=== PATIENT | female | born 2000 | race Caucasian/White ===

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

== ENCOUNTER 2018-03-20 19:26 | Observation (INO) ==
[2018-03-20] MEDS ORDERED: Sod Chloride 0.9% Inj 1,000 ML IV.SIG ONE ×2 (20:10)
[2018-03-20 20:28] LABS: Baso # (Auto) 0.2 th/mm3 (0.0-0.2); Baso % (Auto) 1.5 % (0.0-2.0); Eos % (Auto) 0.1 % (0.0-4.0); Hematocrit 38.6 % (35.0-46.0); Lymph # (Auto) 1.3 th/mm3 (1.0-4.8); Lymph % (Auto) 9.2 % (9.0-44.0); Mean Corpuscular HGB Conc 33.7 % (32.0-36.0); Mean Corpuscular Hemoglobin 31.6 pg (27.0-34.0); Mean Platelet Volume 8.8 fL (7.0-11.0); Mono # (Auto) 1.2 th/mm3 (0.0-0.9); Mono % (Auto) 8.8 % (0.0-8.0); Neut # (Auto) 11.1 th/mm3 (1.8-7.7); Neut % (Auto) 80.4 % (16.0-70.0); Platelet Count 373 th/mm3 (150-450); Red Cell Distribution Width 13.2 % (11.6-17.2); White Blood Count 13.8 th/mm3 (4.0-11.0)
[2018-03-20 20:38] LABS: Chloride 100 meq/L (98-107); Sodium 137 meq/L (136-145)
[2018-03-20 20:42] LABS: Calcium 8.8 mg/dL (8.5-10.1)
[2018-03-20 20:43] LABS: Albumin 3.3 g/dL (3.4-5.0); Anion Gap 12 meq/L (5-15); Blood Urea Nitrogen 12 mg/dL (7-18); Carbon Dioxide 24.8 meq/L (21.0-32.0); Glucose,Random 92 mg/dL (74-106)
[2018-03-20 20:46] LABS: Alanine Aminotransferase 12 U/L (9-42); Aspartate Aminotransferase 6 U/L (16-38); Glomerular Filtration Rate 84 mL/min (>89)
[2018-03-20 20:49] LABS: Alkaline Phosphatase 91 U/L (45-117)
--- NOTE | 2018-03-20 20:53 | ED ---
HPI General Chief Complaint: Abdominal Pain Stated Complaint: Vomiting/chills x 7 days Source: patient and family Mode of arrival: ambulatory Limitations: no limitations History of Present Illness HPI narrative: Is a 18-year-old woman presents emerged from complaining of fevers chills, nausea vomiting, back pain, ongoing for the past 5 days or so. She complains of diffuse severe myalgias and pain everywhere. She is tearful and crying. Pain started several days ago. The worsening over the past several days. Multiples of vomiting today. No urinary symptoms. She on her menstrual cycle now. Denies any IV drug use. No other complaints. Related Data Home Medications Medication Instructions Recorded Confirmed ibuprofen 400 mg PO Q4-6H PRN 03/20/18 03/20/18 Allergies Allergy/AdvReac Type Severity Reaction Status Date / Time No Known Allergies Allergy Uncoded 12/28/11 20:32 Review of Systems ROS Unobtainable All other systems reviewed negative except as stated in HPI [facility] Medical History Medical History History of acute renal failure (Acute) History of anxiety (Acute) Surgical History Surgical History No history of previous surgery (Acute) Social History Social History Substance History: Active Abuse Second Hand Smoke Exposure: No Smoking Status: Current every day smoker Tobacco Type: Cigarettes How Often Do You Have a Drink Containing Alcohol: Never Substance Abuse Detail Marijuana: Substance Use Status: Active Immunization History Tetanus Immunization: <5 Years Hx Influenza Vaccine This Season: No Exam Narrative Exam Narrative: GENERAL: 18-year-old woman, nontoxic, tearful crying and somewhat hysterical. SKIN: Focused skin assessment warm/dry. HEAD: Atraumatic. Normocephalic. EYES: Pupils equal and round. No scleral icterus. No injection or drainage. ENT: No nasal bleeding or discharge. Mucous membranes pink and moist. NECK: Trachea midline. No JVD. CARDIOVASCULAR: Regular rate and rhythm. No murmur appreciated. RESPIRATORY: No accessory muscle use. Clear to auscultation. Breath sounds equal bilaterally. GASTROINTESTINAL: Normal contour and appearance. Abdomen soft. Minimal tenderness. Positive CVA tenderness bilaterally. MUSCULOSKELETAL: No obvious deformities. No clubbing. No cyanosis. No edema. NEUROLOGICAL: Awake and alert. No obvious cranial nerve deficits. Motor grossly within normal limits. Normal speech. PSYCHIATRIC: Appropriate mood and affect; insight and judgment normal. Course Initial Documented Vital Signs Temperature 100.2 F H 03/20/18 19:35 Pulse Rate 107 H 03/20/18 19:35 Respiratory Rate 20 03/20/18 19:35 Blood Pressure 130/61 03/20/18 19:35 Pulse Oximetry 100 03/20/18 19:35 Last Documented Vital Signs Temperature 100.3 F H 03/20/18 20:03 Pulse Rate 106 H 03/20/18 20:03 Respiratory Rate 18 03/20/18 22:53 Blood Pressure 83/46 L 03/20/18 22:28 Pulse Oximetry 100 03/20/18 20:21 Medical Decision Making MDM Narrative Medical decision making narrative: A 18-year-old woman presents emerged from a back pain myalgias fevers vomiting suggestive of pyelonephritis. Denies IV drug use. She is very terrible dentition. If she is using IV drugs she would be at risk for osteomyelitis. Will check labs, urine, lactic, IV fluids, IV Tylenol, reassess. Lab Data Result diagrams: 03/20/18 20:10 03/20/18 20:10 Lab Results 03/20/18 03/20/18 03/20/18 Range/Units 20:10 20:10 20:10 CBC w Diff Auto diff final WBC 13.8 H (4.0-11.0) th/mm3 RBC 4.10 (4.00-5.30) mil/mm3 Hgb 13.0 (11.6-15.3) gm/dL Hct 38.6 (35.0-46.0) % MCV 94.0 (80.0-100.0) fL MCH 31.6 (27.0-34.0) pg MCHC 33.7 (32.0-36.0) % RDW 13.2 (11.6-17.2) % Plt Count 373 (150-450) th/mm3 MPV 8.8 (7.0-11.0) fL Neut % (Auto) 80.4 H (16.0-70.0) % Lymph % (Auto) 9.2 (9.0-44.0) % [place] % (Auto) 8.8 H (0.0-8.0) % Eos % (Auto) 0.1 (0.0-4.0) % Baso % (Auto) 1.5 (0.0-2.0) % Neut # (Auto) 11.1 H (1.8-7.7) th/mm3 Lymph # (Auto) 1.3 (1.0-4.8) th/mm3 [place] # (Auto) 1.2 H (0.0-0.9) th/mm3 Eos # (Auto) 0.0 (0.0-0.4) th/mm3 Baso # (Auto) 0.2 (0.0-0.2) th/mm3 WBC Differential . Differential Comment . ESR (0-20) mm/hr Sodium 137 (136-145) meq/L Potassium 3.0 L (3.5-5.1) meq/L Chloride 100 (98-107) meq/L Carbon Dioxide 24.8 (21.0-32.0) meq/L Anion Gap 12 (5-15) meq/L BUN 12 (7-18) mg/dL Creatinine 0.86 (0.50-1.00) mg/dL Estimated GFR 84 L (>89) mL/min Random Glucose 92 (74-106) mg/dL Lactic Acid 1.3 (0.4-2.0) mmol/L Calcium 8.8 (8.5-10.1) mg/dL Total Bilirubin 0.6 (0.2-1.0) mg/dL AST 6 L (16-38) U/L ALT 12 (9-42) U/L Alkaline Phosphatase 91 (45-117) U/L C-Reactive Protein (0.00-0.30) mg/dL Total Protein 8.0 (6.4-8.2) g/dL Albumin 3.3 L (3.4-5.0) g/dL Urine Color (Yellw/Straw) Urine Clarity (Clear) Urine pH (5.0-8.5) Ur Specific [place] (1.002-1.035) Urine Protein (Neg-Trace) mg/dL Urine Glucose (UA) (Negative) mg/dL Urine Ketones (Negative) mg/dL Urine Occult Blood (Negative) Urine Nitrate (Negative) Urine Bilirubin (Negative) Urine Urobilinogen (Less than 2) mg/dL Ur Leukocyte Esterase (Negative) Urine WBC (0-5) /hpf Ur Squamous Epith Cells (0-5) /hpf Urine Bacteria (None) /hpf Micro UA Comment Urine Culture Comments Urine Opiates Screen (Neg) Ur Barbiturates Screen (Neg) Ur Amphetamines Screen (Neg) U Benzodiazepines Scrn (Neg) Urine Cocaine Screen (Neg) U Cannabinoids Screen (Neg) 03/20/18 03/20/18 03/20/18 Range/Units 20:10 20:10 21:50 CBC w Diff WBC (4.0-11.0) th/mm3 RBC (4.00-5.30) mil/mm3 Hgb (11.6-15.3) gm/dL Hct (35.0-46.0) % MCV (80.0-100.0) fL MCH (27.0-34.0) pg MCHC (32.0-36.0) % RDW (11.6-17.2) % Plt Count (150-450) th/mm3 MPV (7.0-11.0) fL Neut % (Auto) (16.0-70.0) % Lymph % (Auto) (9.0-44.0) % [place] % (Auto) (0.0-8.0) % Eos % (Auto) (0.0-4.0) % Baso % (Auto) (0.0-2.0) % Neut # (Auto) (1.8-7.7) th/mm3 Lymph # (Auto) (1.0-4.8) th/mm3 [place] # (Auto) (0.0-0.9) th/mm3 Eos # (Auto) (0.0-0.4) th/mm3 Baso # (Auto) (0.0-0.2) th/mm3 WBC Differential Differential Comment ESR 51 H (0-20) mm/hr Sodium (136-145) meq/L Potassium (3.5-5.1) meq/L Chloride (98-107) meq/L Carbon Dioxide (21.0-32.0) meq/L Anion Gap (5-15) meq/L BUN (7-18) mg/dL Creatinine (0.50-1.00) mg/dL Estimated GFR (>89) mL/min Random Glucose (74-106) mg/dL Lactic Acid (0.4-2.0) mmol/L Calcium (8.5-10.1) mg/dL Total Bilirubin (0.2-1.0) mg/dL AST (16-38) U/L ALT (9-42) U/L Alkaline Phosphatase (45-117) U/L C-Reactive Protein 21.20 H (0.00-0.30) mg/dL Total Protein (6.4-8.2) g/dL Albumin (3.4-5.0) g/dL Urine Color (Yellw/Straw) Urine Clarity (Clear) Urine pH (5.0-8.5) Ur Specific [place] (1.002-1.035) Urine Protein (Neg-Trace) mg/dL Urine Glucose (UA) (Negative) mg/dL Urine Ketones (Negative) mg/dL Urine Occult Blood (Negative) Urine Nitrate (Negative) Urine Bilirubin (Negative) Urine Urobilinogen (Less than 2) mg/dL Ur Leukocyte Esterase (Negative) Urine WBC (0-5) /hpf Ur Squamous Epith Cells (0-5) /hpf Urine Bacteria (None) /hpf Micro UA Comment Urine Culture Comments Urine Opiates Screen Neg (Neg) Ur Barbiturates Screen Neg (Neg) Ur Amphetamines Screen Neg (Neg) U Benzodiazepines Scrn Neg (Neg) Urine Cocaine Screen Neg (Neg) U Cannabinoids Screen Pos H (Neg) 03/20/18 Range/Units 21:50 CBC w Diff WBC (4.0-11.0) th/mm3 RBC (4.00-5.30) mil/mm3 Hgb (11.6-15.3) gm/dL Hct (35.0-46.0) % MCV (80.0-100.0) fL MCH (27.0-34.0) pg MCHC (32.0-36.0) % RDW (11.6-17.2) % Plt Count (150-450) th/mm3 MPV (7.0-11.0) fL Neut % (Auto) (16.0-70.0) % Lymph % (Auto) (9.0-44.0) % [place] % (Auto) (0.0-8.0) % Eos % (Auto) (0.0-4.0) % Baso % (Auto) (0.0-2.0) % Neut # (Auto) (1.8-7.7) th/mm3 Lymph # (Auto) (1.0-4.8) th/mm3 [place] # (Auto) (0.0-0.9) th/mm3 Eos # (Auto) (0.0-0.4) th/mm3 Baso # (Auto) (0.0-0.2) th/mm3 WBC Differential Differential Comment ESR (0-20) mm/hr Sodium (136-145) meq/L Potassium (3.5-5.1) meq/L Chloride (98-107) meq/L Carbon Dioxide (21.0-32.0) meq/L Anion Gap (5-15) meq/L BUN (7-18) mg/dL Creatinine (0.50-1.00) mg/dL Estimated GFR (>89) mL/min Random Glucose (74-106) mg/dL Lactic Acid (0.4-2.0) mmol/L Calcium (8.5-10.1) mg/dL Total Bilirubin (0.2-1.0) mg/dL AST (16-38) U/L ALT (9-42) U/L Alkaline Phosphatase (45-117) U/L C-Reactive Protein (0.00-0.30) mg/dL Total Protein (6.4-8.2) g/dL Albumin (3.4-5.0) g/dL Urine Color Yellow (Yellw/Straw) Urine Clarity Clear (Clear) Urine pH 6.0 (5.0-8.5) Ur Specific [place] 1.020 (1.002-1.035) Urine Protein Trace (Neg-Trace) mg/dL Urine Glucose (UA) Negative (Negative) mg/dL Urine Ketones 80 or greater (Negative) mg/dL Urine Occult Blood Negative (Negative) Urine Nitrate Negative (Negative) Urine Bilirubin Negative (Negative) Urine Urobilinogen 0.2 (Less than 2) mg/dL Ur Leukocyte Esterase Negative (Negative) Urine WBC 9-20 H (0-5) /hpf Ur Squamous Epith Cells 0-5 (0-5) /hpf Urine Bacteria Moderate H (None) /hpf Micro UA Comment Culture indicated Urine Culture Comments Culture indicated Urine Opiates Screen (Neg) Ur Barbiturates Screen (Neg) Ur Amphetamines Screen (Neg) U Benzodiazepines Scrn (Neg) Urine Cocaine Screen (Neg) U Cannabinoids Screen (Neg) Imaging Data Radiologist's impression: Chest X-Ray 03/20/18 20:23 CONCLUSION: No acute cardiopulmonary process. Discharge Plan Discharge Disposition Patient Disposition: 30 Still Patient Physicians Team ED Provider: Wilson Bhatt Primary Care Provider: Primary Care Angela Cortés Attending Provider: Iron Daley Discharge Interventions Interventions: Vital Signs Last Done: 03/20/18 22:28 Status ED Status: Admitted Patient
--- NOTE | 2018-03-20 21:15 | XR ---
EXAM DATE: 03/20/2018 8:58 PM EDT AGE/SEX: 18 years / Female INDICATIONS: Fever, cough. CLINICAL DATA: This is the patient's initial encounter. Patient reports that signs and symptoms have been present for 1 week and indicates a pain score of 0/10. MEDICAL/SURGICAL HISTORY: None. None. COMPARISON: No prior exams available for comparison. FINDINGS: PA and lateral views of the chest demonstrate the lungs to be symmetrically aerated without evidence of mass, infiltrate or effusion. The cardiomediastinal contours are unremarkable. Osseous structures are intact. CONCLUSION: No acute cardiopulmonary process. Electronically signed by: Ayan Mcdermott MD 03/20/2018 9:14 PM EDT
[2018-03-20 22:16] LABS: Bilirubin,Urine Negative (Negative); Clarity,Urine Clear (Clear); Color,Urine Yellow (Yellw/Straw); Glucose,Urine (UA) Negative (Negative); Leukocyte Esterase,Urine Negative (Negative); Nitrite,Urine Negative (Negative); Urobilinogen,Urine 0.2 mg/dL (Less than 2)
[2018-03-20 22:23] LABS: Bacteria,Urine Moderate /hpf; Squamous Epithelial Cell,Urine 0-5 /hpf (0-5)
[2018-03-20 22:25] LABS: Amphetamine Screen,Urine Neg (Neg); Barbiturate Screen,Urine Neg (Neg); Cannabinoid Screen,Urine Pos (Neg); Cocaine Screen,Urine Neg (Neg)
[2018-03-20] MEDS ORDERED: Potassium Chlor 40 mEq Premix 40 MEQ/100 ML PIGGYBACK IV.SIG ONE (22:26)
[2018-03-20] MEDS ORDERED: Sod Chloride 0.9% Inj 1,000 ML IV.CONT SCH (22:30)
[2018-03-20 22:41] LABS: Opiate Screen,Urine Neg (Neg)
[2018-03-20] MEDS ORDERED: Vancomycin Inj 1 GM/200 ML PIGGYBACK IV.SIG SCH (23:00)
[2018-03-20] MEDS ORDERED: Temazepam 15 MG Capsule PO PRN (23:36)
[2018-03-20] MEDS ORDERED: Bisacodyl 10 MG Supp RECTAL PRN (23:36)
[2018-03-20] MEDS ORDERED: CEFOTAXIME IV.SIG SCH (23:45)
[2018-03-20] MEDS ORDERED: SODIUM CHLORIDE 0.9% IV.SIG SCH (23:45)
--- NOTE | 2018-03-20 23:58 | P.HP ---
History of Present Illness Service: [facility] hospitalist Primary Care Physician: No Primary Care Physician Dr Kasper Chief Complaint: pain fever all over for 5 days History of Present Illness: 18-year-old white female, presents to the emergency room with complaints of fever chills nausea vomiting recurrent back pain which is been ongoing for 5 days. She also complains of diffuse severe myalgias and pain everywhere. Patient also on emergency room arrival was tearful and crying. Patient did state she went to the urgent care center earlier in the week and was told to drink a lot of fluids as they did not any other abnormalities. Patient did have multiple episodes of vomiting today. No urinary symptoms. She is on her menstrual cycle now is denies any IV drug use no other significant complaints patient has used ibuprofen for her fevers and does smoke marijuana. Denies any other IV drug abuse in the emergency room she was found to have a temp greater than 100 white blood cell count greater than 13,000 with shift to the left she also had a positive sed rate and a positive C-reactive protein. On urine evaluation does show some WBCs in the urine consistent with urinary tract infection patient was started on IV antibiotic cefepime 2 g given in emergency room. Also of note patient was slightly hypotensive in the emergency room she will be given IV fluid and follow-up labs in the morning. - Diagnosis (1) Fever (2) Diffuse pain (3) UTI (urinary tract infection) Inpatient Certification: I certify that the inpatient services were ordered in accordance with Medicare regulations governing the order. This includes certification that hospital inpatient services are reasonable and necessary and in the case of services not specified as inpatient-only under 42 CFR 419.22(n), that they are appropriately provided as inpatient services in accordance to with the 2-midnight benchmark under 43 CFR 412.3(e) Review of Systems All other systems reviewed negative except as stated in HPI PMFSH - History History Provided By: Patient, Family Member - Medical History Medical History: Medical History (Last Reviewed 03/20/18 @ 20:53 by Wilson Bhatt MD) History of acute renal failure History of anxiety - Surgical History Surgical History: Surgical History (Last Reviewed 03/20/18 @ 20:53 by Wilson Bhatt MD) No history of previous surgery - Tobacco History Second Hand Smoke Exposure: No Tobacco Use In Past 30 Days: Yes Smoking Status: Current every day smoker Tobacco Type: Cigarettes - Alcohol History How Often Do You Have a Drink Containing Alcohol: Never - Substance Use History Substance History: Active Abuse - Substance Use Type Marijuana Status: Active - Immunization History Tetanus Immunization: <5 Years Hx Influenza Vaccine This Season: No Medications and Allergies Active Medications: Active Medications Acetaminophen (Tylenol) 650 mg PO Q6H PRN PRN Reason: FEVER Al Hydroxide/Mg Hydroxide (Milk Of Magnesia Liq) 30 ml PO Q12H PRN PRN Reason: Mild Constipation Bisacodyl (Dulcolax Supp) 10 mg RECTAL DAILY PRN PRN Reason: SEVERE CONSITIPATION Vancomycin/Sodium Chloride (Vancomycin Inj) 1 gm in 200 mls @ 200 mls/hr IV.SIG [employer] ASSOCIATE CALLIE Sodium Chloride (Ns Inj) 1,000 mls @ 125 mls/hr IV.CONT .Q8H [facility] Last Admin: 03/20/18 23:10 Dose: 125 mls/hr Potassium Chloride (Kcl 10 Meq Premix Inj) 10 meq in 100 mls @ 100 mls/hr IV.SIG Q1H CALLIE Stop: 03/21/18 02:59 Cefotaxime Sodium 1,000 mg/ (Sodium Chloride) 100 mls @ 200 mls/hr IV.SIG Q8H CALLIE Lactulose (Lactulose Liq) 30 ml PO DAILY PRN PRN Reason: SEVERE CONSITIPATION Senna/Docusate Sodium (Angela-Colace) 1 tab PO BID [facility] Sennosides (Senokot) 17.2 mg PO Q12H PRN PRN Reason: Moderate Constipation Temazepam (Restoril) 15 mg PO HS PRN PRN Reason: INSOMNIA Allergies Allergy/AdvReac Type Severity Reaction Status Date / Time No Known Allergies Allergy Uncoded 12/28/11 20:32 Home Medications Medication Instructions Recorded Confirmed Type ibuprofen 400 mg PO Q4-6H PRN 03/20/18 03/20/18 History Exam Vital signs: Vital Signs 03/20/18 19:35 03/20/18 19:59 03/20/18 20:03 Temperature 100.2 F H 101.9 F H 100.3 F H Pulse Rate 107 H 98 H 106 H Respiratory Rate 20 20 20 Blood Pressure 130/61 107/63 90/46 L Pulse Oximetry 100 100 98 03/20/18 20:21 03/20/18 22:28 03/20/18 22:53 Temperature Pulse Rate Respiratory Rate 18 Blood Pressure 83/46 L Pulse Oximetry 100 03/20/18 23:12 Temperature Pulse Rate 97 H Respiratory Rate 18 Blood Pressure 102/58 L Pulse Oximetry Intake & Output 03/20/18 03/20/18 03/21/18 06:59 18:59 06:59 Intake Total 1100 / 1100 Balance 1100 / 1100 Weight 24.239 kg Intake: IV 1100 / 1100 Ofirmev Inj 1,000 mg In 100 ml 100 / 100 @ 400 mls/hr IV.SIG ONCE ONE Rx #:[id number] NS Inj 1,000 ML @ Wide Open IV. 1000 / 1000 SIG BOLUS ONE Rx#:[id number] Narrative: GENERAL: SKIN: Warm and dry. HEAD: Atraumatic. Normocephalic. EYES: Pupils equal and round. No scleral icterus. No injection or drainage. ENT: No nasal bleeding or discharge. Mucous membranes pink and moist. NECK: Trachea midline. No JVD. CARDIOVASCULAR: Regular rate and rhythm. RESPIRATORY: No accessory muscle use. Clear to auscultation. Breath sounds equal bilaterally. GASTROINTESTINAL: Abdomen soft, non-tender, nondistended. Hepatic and splenic margins not palpable. MUSCULOSKELETAL: Extremities without clubbing, cyanosis, or edema. No obvious deformities. NEUROLOGICAL: Awake and alert. No obvious cranial nerve deficits. Motor grossly within normal limits. Five out of 5 muscle strength in the arms and legs. Normal speech. PSYCHIATRIC: Appropriate mood and affect; insight and judgment normal. Results - Labs CBC & Chem 7: 03/20/18 20:10 03/20/18 20:10 Labs: Laboratory Results - last 24 hr 03/20/18 03/20/18 03/20/18 20:10 20:10 20:10 CBC w Diff Auto diff final WBC 13.8 H RBC 4.10 Hgb 13.0 Hct 38.6 MCV 94.0 MCH 31.6 MCHC 33.7 RDW 13.2 Plt Count 373 MPV 8.8 Neut % (Auto) 80.4 H Lymph % (Auto) 9.2 [place] % (Auto) 8.8 H Eos % (Auto) 0.1 Baso % (Auto) 1.5 Neut # (Auto) 11.1 H Lymph # (Auto) 1.3 [place] # (Auto) 1.2 H Eos # (Auto) 0.0 Baso # (Auto) 0.2 WBC Differential . Differential Comment . ESR Sodium 137 Potassium 3.0 L Chloride 100 Carbon Dioxide 24.8 Anion Gap 12 BUN 12 Creatinine 0.86 Estimated GFR 84 L Random Glucose 92 Lactic Acid 1.3 Calcium 8.8 Total Bilirubin 0.6 AST 6 L ALT 12 Alkaline Phosphatase 91 C-Reactive Protein Total Protein 8.0 Albumin 3.3 L Urine Color Urine Clarity Urine pH Ur Specific [place] Urine Protein Urine Glucose (UA) Urine Ketones Urine Occult Blood Urine Nitrate Urine Bilirubin Urine Urobilinogen Ur Leukocyte Esterase Urine WBC Ur Squamous Epith Cells Urine Bacteria Micro UA Comment Urine Culture Comments Urine Opiates Screen Ur Barbiturates Screen Ur Amphetamines Screen U Benzodiazepines Scrn Urine Cocaine Screen U Cannabinoids Screen 03/20/18 03/20/18 03/20/18 20:10 20:10 21:50 CBC w Diff WBC RBC Hgb Hct MCV MCH MCHC RDW Plt Count MPV Neut % (Auto) Lymph % (Auto) [place] % (Auto) Eos % (Auto) Baso % (Auto) Neut # (Auto) Lymph # (Auto) [place] # (Auto) Eos # (Auto) Baso # (Auto) WBC Differential Differential Comment ESR 51 H Sodium Potassium Chloride Carbon Dioxide Anion Gap BUN Creatinine Estimated GFR Random Glucose Lactic Acid Calcium Total Bilirubin AST ALT Alkaline Phosphatase C-Reactive Protein 21.20 H Total Protein Albumin Urine Color Urine Clarity Urine pH Ur Specific [place] Urine Protein Urine Glucose (UA) Urine Ketones Urine Occult Blood Urine Nitrate Urine Bilirubin Urine Urobilinogen Ur Leukocyte Esterase Urine WBC Ur Squamous Epith Cells Urine Bacteria Micro UA Comment Urine Culture Comments Urine Opiates Screen Neg Ur Barbiturates Screen Neg Ur Amphetamines Screen Neg U Benzodiazepines Scrn Neg Urine Cocaine Screen Neg U Cannabinoids Screen Pos H 03/20/18 21:50 CBC w Diff WBC RBC Hgb Hct MCV MCH MCHC RDW Plt Count MPV Neut % (Auto) Lymph % (Auto) [place] % (Auto) Eos % (Auto) Baso % (Auto) Neut # (Auto) Lymph # (Auto) [place] # (Auto) Eos # (Auto) Baso # (Auto) WBC Differential Differential Comment ESR Sodium Potassium Chloride Carbon Dioxide Anion Gap BUN Creatinine Estimated GFR Random Glucose Lactic Acid Calcium Total Bilirubin AST ALT Alkaline Phosphatase C-Reactive Protein Total Protein Albumin Urine Color Yellow Urine Clarity Clear Urine pH 6.0 Ur Specific [place] 1.020 Urine Protein Trace Urine Glucose (UA) Negative Urine Ketones 80 or greater Urine Occult Blood Negative Urine Nitrate Negative Urine Bilirubin Negative Urine Urobilinogen 0.2 Ur Leukocyte Esterase Negative Urine WBC 9-20 H Ur Squamous Epith Cells 0-5 Urine Bacteria Moderate H Micro UA Comment Culture indicated Urine Culture Comments Culture indicated Urine Opiates Screen Ur Barbiturates Screen Ur Amphetamines Screen U Benzodiazepines Scrn Urine Cocaine Screen U Cannabinoids Screen - Imaging Impressions Chest X-Ray 03/20/18 20:23 CONCLUSION: No acute cardiopulmonary process. Caprini VTE Risk Assessment Caprini VTE Risk Assessment: No/Low Risk (score <= 1) Caprini Risk Assessment Model: Point Value = 1 Point Value = 2 Point Value = 3 Point Value = 5 Age 41-60 Minor surgery BMI > 25 kg/m2 Swollen legs Varicose veins or History of unexplained or recurrent spontaneous Oral contraceptives or hormone replacement Sepsis (< 1 month) Serious lung disease, including pneumonia (< 1 month) Abnormal pulmonary function Acute myocardial infarction Congestive heart failure (< 1 month) History of inflammatory bowel disease Medical patient at bed rest Age 61-74 Arthroscopic surgery Major open surgery (> 45 min) Laparoscopic surgery (> 45 min) Malignancy Confined to bed (> 72 hours) Immobilizing plaster cast Central venous access Age >= 75 History of VTE Family history of VTE Factor V Leiden Prothrombin [id number] Lupus anticoagulant Anticardiolipin antibodies Elevated serum homocysteine Heparin-induced thrombocytopenia Other congenital or acquired thrombophilia Stroke (< 1 month) Elective arthroplasty Hip, pelvis, or leg fracture Acute spinal cord injury (< 1 month) Prophylaxis Regimen: Total Risk Factor Score Risk Level Prophylaxis Regimen 0-1 Low Early ambulation 2 Moderate Order ONE of the following: *Sequential Compression Device (SCD) *Heparin 5000 units SQ BID 3-4 Higher Order ONE of the following medications: *Heparin 5000 units SQ TID *Enoxaparin/Lovenox 40 mg SQ daily (WT < 150 kg, CrCl > 30 mL/min) *Enoxaparin/Lovenox 30 mg SQ daily (WT < 150 kg, CrCl > 10-29 mL/min) *Enoxaparin/Lovenox 30 mg SQ BID (WT < 150 kg, CrCl > 30 mL/min) AND/OR *Sequential Compression Device (SCD) 5 or more Highest Order ONE of the following medications: *Heparin 5000 units SQ TID (Preferred with Epidurals) *Enoxaparin/Lovenox 40 mg SQ daily (WT < 150 kg, CrCl > 30 mL/min) *Enoxaparin/Lovenox 30 mg SQ daily (WT < 150 kg, CrCl > 10-29 mL/min) *Enoxaparin/Lovenox 30 mg SQ BID (WT < 150 kg, CrCl > 30 mL/min) AND *Sequential Compression Device (SCD) Assessment and Plan - Assessment (1) Fever Code(s): R50.9 - Fever, unspecified Status: Acute Plan: obtain blood and urine cultures has elevated esr and crp and wbc will follow start IV antibiotic 2gm q 8 follow cbc (2) Diffuse pain Code(s): R52 - Pain, unspecified Status: Acute Plan: pain seems mainly in back area and does have wbc in urine will get non contrast CT abdomen/pelvis to check for any kidney stones may have pyelonephritis (3) UTI (urinary tract infection) Code(s): N39.0 - Urinary tract infection, site not specified Status: Acute Plan: on antibiotic as above - Plan further plan as case develops Code Status: full Discussed Condition With: patient and mother
[2018-03-21] MEDS: Potassium Chlor 10 mEq Premix 10 MEQ/100 ML PIGGYBACK IV.SIG SCH ×2 (00:13→02:27)
[2018-03-21] MEDS ORDERED: Potassium Chlor 10 mEq Premix 10 MEQ/100 ML PIGGYBACK IV.SIG SCH (00:15)
--- NOTE | 2018-03-21 00:48 | CT ---
EXAM DATE: 03/21/2018 12:39 AM EDT AGE/SEX: 18 years / Female INDICATIONS: Back pain, urinary tract infection and fever. CLINICAL DATA: This is the patient's initial encounter. Patient reports that signs and symptoms have been present for 1 day and indicates a pain score of 5/10. MEDICAL/SURGICAL HISTORY: . Acute renal failure, anxiety. None. RADIATION DOSE: 5.66 CTDI (mGy) COMPARISON: No prior exams available for comparison. TECHNIQUE: Multiple contiguous axial images were obtained through the abdomen. Images were obtained using multiple row detector helical technique. Using automated exposure control and adjustment of the mA and/or kV according to patient size, radiation dose was kept as low as reasonably achievable to o btain optimal diagnostic quality images. DICOM format image data is available electronically for rev iew and comparison. FINDINGS: There is linear scarring or atelectasis in the right middle lobe and left lower lobe. Trace pericardi al fluid. No acute findings in the liver, spleen, kidneys or pancreas. No calcified gallstones or biliary ducta l dilatation. There is a small amount of free fluid in the pelvis. CONCLUSION: 1. There is a small amount of free fluid in the pelvis. No free air. No hydronephrosis or renal calc lan. Contrast not administered. Electronically signed by: Parish Pizano MD 03/21/2018 12:47 AM EDT
[2018-03-21] MEDS: Potassium Chloride Inj 10 MEQ in Sod Chloride 0.9% Inj 1,000 ML IV.SIG SCH ×2 (04:17→12:39)
[2018-03-21 06:24] LABS: Baso % (Auto) 0.1 % (0.0-2.0); Eos % (Auto) 0.1 % (0.0-4.0); Hematocrit 33.7 % (35.0-46.0); Hemoglobin 11.1 gm/dL (11.6-15.3); Lymph # (Auto) 0.8 th/mm3 (1.0-4.8); Lymph % (Auto) 5.4 % (9.0-44.0); Mean Corpuscular Hemoglobin 30.8 pg (27.0-34.0); Mean Corpuscular Volume 93.4 fL (80.0-100.0); Mean Platelet Volume 9.5 fL (7.0-11.0); Mono # (Auto) 2.1 th/mm3 (0.0-0.9); Mono % (Auto) 13.6 % (0.0-8.0); Neut # (Auto) 12.6 th/mm3 (1.8-7.7); Neut % (Auto) 80.8 % (16.0-70.0); Platelet Count 322 th/mm3 (150-450); Red Blood Count 3.61 mil/mm3 (4.00-5.30); Red Cell Distribution Width 13.1 % (11.6-17.2); White Blood Count 15.5 th/mm3 (4.0-11.0)
[2018-03-21 06:34] LABS: Chloride 104 meq/L (98-107); Potassium 3.2 meq/L (3.5-5.1); Sodium 137 meq/L (136-145)
[2018-03-21 06:45] LABS: Anion Gap 14 meq/L (5-15); Blood Urea Nitrogen 7 mg/dL (7-18); Calcium 7.7 mg/dL (8.5-10.1); Carbon Dioxide 18.9 meq/L (21.0-32.0); Glomerular Filtration Rate Greater Than 89 mL/min (>89); Glucose,Random 91 mg/dL (74-106)
[2018-03-21 07:09] LABS: Platelet Estimate Normal (Normal); Platelet Morphology Normal (Normal)
[2018-03-21] MEDS: Acetaminophen 325 MG Tablet PO PRN ×2 (08:18→14:35)
[2018-03-21] MEDS: Senna/Docusate Sodium 8.6/50 MG Tablet PO SCH ×2 (08:27→20:06)
--- NOTE | 2018-03-21 10:29 | P.PN ---
Subjective Interval history: Patient without any improvement still with fever and nausea and vomit ,Wbc count increased to 15,000 ,CT abd/pelvis negative and has bllod and urine culture still pending results . Physical Exam Vital signs: Vital Signs 03/20/18 19:35 03/20/18 19:59 03/20/18 20:03 Temperature 100.2 F H 101.9 F H 100.3 F H Pulse Rate 107 H 98 H 106 H Respiratory Rate 20 20 20 Blood Pressure 130/61 107/63 90/46 L Pulse Oximetry 100 100 98 03/20/18 20:21 03/20/18 22:28 03/20/18 22:53 Temperature Pulse Rate Respiratory Rate 18 Blood Pressure 83/46 L Pulse Oximetry 100 03/20/18 23:12 03/21/18 04:00 03/21/18 08:00 Temperature 98.9 F 101.6 F H Pulse Rate 97 H 81 99 H Respiratory Rate 18 16 18 Blood Pressure 102/58 L 100/51 L 113/65 Pulse Oximetry 99 99 Intake & Output 03/20/18 03/21/18 03/21/18 18:59 06:59 18:59 Intake Total 2820 / 2820 Balance 2820 / 2820 Weight 57 kg Intake: IV 2820 / 2820 NS Inj 1,000 ML @ 125 mls/hr IV 320 / 320 .CONT .Q8H [facility] Rx#:[id number] Ofirmev Inj 1,000 mg In 100 ml 100 / 100 @ 400 mls/hr IV.SIG ONCE ONE Rx #:[id number] Maxipime Inj 2,000 MG In NS Inj 100 / 100 100 ML @ 200 mls/hr IV.SIG ONCE ONE Rx#:[id number] KCl 10 mEq Premix Inj 10 meq In 100 / 100 100 ml @ 100 mls/hr IV.SIG Q1H [facility] Rx#:[id number] NS Inj 1,000 ML @ Wide Open IV. 1999 / 1999 SIG BOLUS ONE Rx#:[id number] Vancomycin Inj 1 gm In 200 ml @ 200 / 200 200 mls/hr IV.SIG [employer] [facility] Rx#:[id number] Other: Weight On Admission 57 kg Narrative: GENERAL: SKIN: Warm and dry. HEAD: Normocephalic. EYES: No scleral icterus. No injection or drainage. NECK: Supple, trachea midline. No JVD or lymphadenopathy. CARDIOVASCULAR: Regular rate and rhythm without murmurs, gallops, or rubs. RESPIRATORY: Breath sounds equal bilaterally. No accessory muscle use. GASTROINTESTINAL: Abdomen soft, non-tender, nondistended. MUSCULOSKELETAL: No cyanosis, or edema. BACK: Nontender without obvious deformity. No CVA tenderness. Results - Labs CBC & Chem 7: 03/21/18 05:30 03/21/18 05:30 Laboratory Results - last 24 hr 03/20/18 03/20/18 03/20/18 20:10 20:10 20:10 CBC w Diff Auto diff final WBC 13.8 H RBC 4.10 Hgb 13.0 Hct 38.6 MCV 94.0 MCH 31.6 MCHC 33.7 RDW 13.2 Plt Count 373 MPV 8.8 Neut % (Auto) 80.4 H Lymph % (Auto) 9.2 [place] % (Auto) 8.8 H Eos % (Auto) 0.1 Baso % (Auto) 1.5 Neut # (Auto) 11.1 H Lymph # (Auto) 1.3 [place] # (Auto) 1.2 H Eos # (Auto) 0.0 Baso # (Auto) 0.2 WBC Differential . Diff Scan Differential Comment . Platelet Estimate Platelet Morphology ESR Sodium 137 Potassium 3.0 L Chloride 100 Carbon Dioxide 24.8 Anion Gap 12 BUN 12 Creatinine 0.86 Estimated GFR 84 L Random Glucose 92 Lactic Acid 1.3 Calcium 8.8 Total Bilirubin 0.6 AST 6 L ALT 12 Alkaline Phosphatase 91 C-Reactive Protein Total Protein 8.0 Albumin 3.3 L Urine Color Urine Clarity Urine pH Ur Specific [place] Urine Protein Urine Glucose (UA) Urine Ketones Urine Occult Blood Urine Nitrate Urine Bilirubin Urine Urobilinogen Ur Leukocyte Esterase Urine WBC Ur Squamous Epith Cells Urine Bacteria Micro UA Comment Urine Culture Comments Urine Opiates Screen Ur Barbiturates Screen Ur Amphetamines Screen U Benzodiazepines Scrn Urine Cocaine Screen U Cannabinoids Screen 03/20/18 03/20/18 03/20/18 20:10 20:10 21:50 CBC w Diff WBC RBC Hgb Hct MCV MCH MCHC RDW Plt Count MPV Neut % (Auto) Lymph % (Auto) [place] % (Auto) Eos % (Auto) Baso % (Auto) Neut # (Auto) Lymph # (Auto) [place] # (Auto) Eos # (Auto) Baso # (Auto) WBC Differential Diff Scan Differential Comment Platelet Estimate Platelet Morphology ESR 51 H Sodium Potassium Chloride Carbon Dioxide Anion Gap BUN Creatinine Estimated GFR Random Glucose Lactic Acid Calcium Total Bilirubin AST ALT Alkaline Phosphatase C-Reactive Protein 21.20 H Total Protein Albumin Urine Color Urine Clarity Urine pH Ur Specific [place] Urine Protein Urine Glucose (UA) Urine Ketones Urine Occult Blood Urine Nitrate Urine Bilirubin Urine Urobilinogen Ur Leukocyte Esterase Urine WBC Ur Squamous Epith Cells Urine Bacteria Micro UA Comment Urine Culture Comments Urine Opiates Screen Neg Ur Barbiturates Screen Neg Ur Amphetamines Screen Neg U Benzodiazepines Scrn Neg Urine Cocaine Screen Neg U Cannabinoids Screen Pos H 03/20/18 03/21/18 03/21/18 21:50 05:30 05:30 CBC w Diff Slide review pending WBC 15.5 H RBC 3.61 L Hgb 11.1 L Hct 33.7 L MCV 93.4 MCH 30.8 MCHC 33.0 RDW 13.1 Plt Count 322 MPV 9.5 Neut % (Auto) 80.8 H Lymph % (Auto) 5.4 L [place] % (Auto) 13.6 H Eos % (Auto) 0.1 Baso % (Auto) 0.1 Neut # (Auto) 12.6 H Lymph # (Auto) 0.8 L [place] # (Auto) 2.1 H Eos # (Auto) 0.0 Baso # (Auto) 0.0 WBC Differential . Diff Scan Auto diff confirmed Differential Comment . Platelet Estimate Normal Platelet Morphology Normal ESR Sodium 137 Potassium 3.2 L Chloride 104 Carbon Dioxide 18.9 L Anion Gap 14 BUN 7 Creatinine 0.63 Estimated GFR Greater than 89 Random Glucose 91 Lactic Acid Calcium 7.7 L D Total Bilirubin AST ALT Alkaline Phosphatase C-Reactive Protein Total Protein Albumin Urine Color Yellow Urine Clarity Clear Urine pH 6.0 Ur Specific [place] 1.020 Urine Protein Trace Urine Glucose (UA) Negative Urine Ketones 80 or greater Urine Occult Blood Negative Urine Nitrate Negative Urine Bilirubin Negative Urine Urobilinogen 0.2 Ur Leukocyte Esterase Negative Urine WBC 9-20 H Ur Squamous Epith Cells 0-5 Urine Bacteria Moderate H Micro UA Comment Culture indicated Urine Culture Comments Culture indicated Urine Opiates Screen Ur Barbiturates Screen Ur Amphetamines Screen U Benzodiazepines Scrn Urine Cocaine Screen U Cannabinoids Screen - Imaging Impressions Abdomen/Pelvis CT 03/20/18 00:00 CONCLUSION: 1. There is a small amount of free fluid in the pelvis. No free air. No hydronephrosis or renal calculi. Contrast not administered. Chest X-Ray 03/20/18 20:23 CONCLUSION: No acute cardiopulmonary process. Assessment and Plan - Assessment (1) Fever Code(s): R50.9 - Fever, unspecified Status: Acute Plan: obtain blood and urine cultures has elevated esr and crp and wbc will follow start IV antibiotic 2gm q 8 follow cbc as still with symptoms will ask ID for input add potassium bolus (2) Diffuse pain Code(s): R52 - Pain, unspecified Status: Acute Plan: pain seems mainly in back area and does have wbc in urine non contrast CT abdomen/pelvis negaitve some fluid in pelvis (3) UTI (urinary tract infection) Code(s): N39.0 - Urinary tract infection, site not specified Status: Acute Plan: on antibiotic as above - Plan further plan as case develops
[2018-03-21] MEDS ORDERED: Potassium Chlor 10 mEq Premix 10 MEQ/100 ML PIGGYBACK IV.SIG ONE (11:00)
[2018-03-21 11:58] LABS: Chloride 106 meq/L (98-107); Potassium 3.3 meq/L (3.5-5.1); Sodium 138 meq/L (136-145)
[2018-03-21 12:04] LABS: Calcium 7.8 mg/dL (8.5-10.1)
[2018-03-21 12:14] LABS: Alanine Aminotransferase 8 U/L (9-42); Albumin 2.4 g/dL (3.4-5.0); Alkaline Phosphatase 70 U/L (45-117); Anion Gap 12 meq/L (5-15); Aspartate Aminotransferase 6 U/L (16-38); Blood Urea Nitrogen 5 mg/dL (7-18); Carbon Dioxide 19.8 meq/L (21.0-32.0); Glomerular Filtration Rate Greater Than 89 mL/min (>89); Glucose,Random 98 mg/dL (74-106); Total Protein 6.1 g/dL (6.4-8.2)
--- NOTE | 2018-03-21 16:50 | P.CONID ---
History of Present Illness Service: Infectious Disease Consult date: 03/21/18 Requesting Physician: Iron Daley Reason for Consult: Fever, Leucocytosis Primary Care Provider: No Primary Care Physician Family Provider: No Primary Care Physician Chief Complaint: pain fever all over for 5 days History of Present Illness: 18?f patient started feeling sick last Wednesday when she had severe bodyaches, nausea and vomiting when she returned from work. She did run some chills and next day she went to Urgent care where they checked her for Flu and Strep which were negative and so given anti emetic and advised to take Tylenol and Ibuprofen. Over the week symptoms continued to happen off and on and then when she no longer could keep fluids down - she came to ER where she was found to have a fever, leucocytosis and abnormal UA. She was started on IV Vancomycin and Cefepime bt continues to run fevers, Review of Systems Constitutional: Reports body ache(s), Reports chills, Reports fatigue, Reports fever(s), Reports lack of energy, Reports weakness Eyes: Denies blurry vision, Denies bulging eyes, Denies change in vision, Denies floaters Ears, Nose, Mouth, and Throat: Denies abnormal hearing, Denies bleeding gums, Denies headache(s), Denies hearing loss, Denies mouth lesions, Denies mouth pain Cardiovascular: Denies chest pain, Denies chest pain at rest, Denies chest pain with activity, Denies fast heart rate, Denies irregular heart rhythm, Denies leg swelling, Denies lightheadedness Respiratory: Denies change in phlegm color, Denies chest congestion, Denies excessive phlegm production, Denies pain on inspiration, Denies shortness of breath with activity Gastrointestinal: Reports abdominal pain, Reports nausea, Reports vomiting, Denies cramping Genitourinary: Reports other (LMP - just finished her menses), Denies painful urination, Denies pelvic pain Musculoskeletal: Reports back pain, Reports body aches, Denies joint pain, Denies joint swelling Skin/Breast: Denies acne, Denies bleeding lesions, Denies boil Neurologic: Denies abnormal movements, Denies loss of vision, Denies memory loss , Denies seizure-like activity, Denies sensory deficit Psychiatric: Reports anxiety, Denies confusion, Denies depression, Denies memory loss Endocrine: Denies excessive sweating, Denies flushing PMFSH - History History Provided By: Patient - Medical History Medical History: Medical History (Last Reviewed 03/20/18 @ 20:53 by Wilson Bhatt MD) History of acute renal failure History of anxiety - Surgical History Surgical History: Surgical History (Last Reviewed 03/20/18 @ 20:53 by Wilson Bhatt MD) No history of previous surgery - Tobacco History Second Hand Smoke Exposure: Yes Tobacco Use In Past 30 Days: No Smoking Status: Former smoker Tobacco Type: Cigarettes - Alcohol History How Often Do You Have a Drink Containing Alcohol: Monthly or less - Substance Use History Substance History: Active Abuse - Substance Use Type Marijuana Status: Active Route Used: Inhalation Reason for Use: Calm Down, Feels Good Comment: PT states she smokes " to help with depression, and anxiety." - Immunization History Tetanus Immunization: <5 Years Hx Influenza Vaccine This Season: No Medications and Allergies Active Medications: Active Medications Acetaminophen (Tylenol) 650 mg PO Q6H PRN PRN Reason: FEVER Last Admin: 03/21/18 14:35 Dose: 650 mg Al Hydroxide/Mg Hydroxide (Milk Of Magnesia Liq) 30 ml PO Q12H PRN PRN Reason: Mild Constipation Bisacodyl (Dulcolax Supp) 10 mg RECTAL DAILY PRN PRN Reason: SEVERE CONSITIPATION Potassium Chloride 10 meq/ (Sodium Chloride) 1,005 mls @ 100 mls/hr IV.SIG .Q10H3M [facility] Last Admin: 03/21/18 12:39 Dose: 100 mls/hr Cefepime HCl 2,000 mg/ Sodium (Chloride) 100 mls @ 200 mls/hr IV.SIG Q8H [facility] Last Admin: 03/21/18 16:24 Dose: 200 mls/hr Ciprofloxacin/Dextrose (Cipro 400 Mg/200 Ml Inj) 400 mg in 200 mls @ 200 mls/ hr IV.SIG Q12H [facility] Lactulose (Lactulose Liq) 30 ml PO DAILY PRN PRN Reason: SEVERE CONSITIPATION Ondansetron HCl (Zofran Odt) 4 mg PO Q6H PRN PRN Reason: NAUSEA OR VOMITING Last Admin: 03/21/18 09:44 Dose: 4 mg Senna/Docusate Sodium (Angela-Colace) 1 tab PO BID [facility] Last Admin: 03/21/18 08:27 Dose: 1 tab Sennosides (Senokot) 17.2 mg PO Q12H PRN PRN Reason: Moderate Constipation Temazepam (Restoril) 15 mg PO HS PRN PRN Reason: INSOMNIA Allergies Allergy/AdvReac Type Severity Reaction Status Date / Time No Known Allergies Allergy Uncoded 12/28/11 20:32 Home Medications Medication Instructions Recorded Confirmed Type ibuprofen 400 mg PO Q4-6H PRN 03/20/18 03/20/18 History Exam Vital signs: Vital Signs 03/20/18 19:35 03/20/18 19:59 03/20/18 20:03 Temperature 100.2 F H 101.9 F H 100.3 F H Pulse Rate 107 H 98 H 106 H Respiratory Rate 20 20 20 Blood Pressure 130/61 107/63 90/46 L Pulse Oximetry 100 100 98 03/20/18 20:21 03/20/18 22:28 03/20/18 22:53 Temperature Pulse Rate Respiratory Rate 18 Blood Pressure 83/46 L Pulse Oximetry 100 03/20/18 23:12 03/21/18 04:00 03/21/18 08:00 Temperature 98.9 F 101.6 F H Pulse Rate 97 H 81 99 H Respiratory Rate 18 16 18 Blood Pressure 102/58 L 100/51 L 113/65 Pulse Oximetry 99 99 03/21/18 12:00 03/21/18 15:43 Temperature 100.3 F H 102.1 F H Pulse Rate 90 99 H Respiratory Rate 18 18 Blood Pressure 106/55 L 108/58 L Pulse Oximetry 100 98 Intake & Output 03/20/18 03/21/18 03/21/18 18:59 06:59 18:59 Intake Total 2820 / 2820 1105 / 1105 Balance 2820 / 2820 1105 / 1105 Weight 57 kg Intake: IV 2820 / 2820 1105 / 1105 NS Inj 1,000 ML @ 125 mls/hr IV 320 / 320 .CONT .Q8H [facility] Rx#:[id number] Ofirmev Inj 1,000 mg In 100 ml 100 / 100 @ 400 mls/hr IV.SIG ONCE ONE Rx #:[id number] Maxipime Inj 2,000 MG In NS Inj 100 / 100 100 / 100 100 ML @ 200 mls/hr IV.SIG Q8H [facility] Rx#:[id number] KCl 10 mEq Premix Inj 10 meq In 100 / 100 100 ml @ 100 mls/hr IV.SIG Q1H [facility] Rx#:[id number] KCl Inj 10 MEQ In NS Inj 1,000 1005 / 1005 ML @ 100 mls/hr IV.SIG .Q10H3M [facility] Rx#:[id number] NS Inj 1,000 ML @ Wide Open IV. 1999 / 1999 SIG BOLUS ONE Rx#:[id number] Vancomycin Inj 1 gm In 200 ml @ 200 / 200 200 mls/hr IV.SIG [employer] Rx#:[id number] Other: Weight On Admission 57 kg - Constitutional mild distress, thin - Routine HEENT Exam Head: Present: normocephalic, atraumatic. Absent: cushingoid faces Eye: Present: EOMI, PERRL. Absent: scleral injection, periorbital swelling ENT: Present: mucous membranes moist, nares patent. Absent: sinus tenderness - Routine Neck Exam Present: supple, full ROM. Absent: JVD - Routine Chest/Breast/Axilla Exam Chest wall: Absent: tenderness, mass - Routine Respiratory Exam Present: CTA bilaterally. Absent: accessory muscle use, rales, rhonchi - Routine Cardiovascular Exam Present: RRR, S1, S2. Absent: murmur, gallop, rubs - Routine Abdominal Exam Present: soft, normoactive bowel sounds, tenderness. Absent: distended, rebound , organomegaly - Routine Extremities Exam Present: full ROM. Absent: cyanosis, edema - Routine Skin Exam Present: intact. Absent: cyanosis, erythema, dry, jaundice - Routine Neurological Exam Present: alert, oriented X3, CN II-XII intact, normal speech. Absent: motor deficit - Routine Psychiatric Exam Present: anxious Results - Labs CBC & Chem 7: 03/21/18 05:30 03/21/18 11:35 Labs: Laboratory Results - last 24 hr 03/20/18 03/20/18 03/20/18 20:10 20:10 20:10 CBC w Diff Auto diff final WBC 13.8 H RBC 4.10 Hgb 13.0 Hct 38.6 MCV 94.0 MCH 31.6 MCHC 33.7 RDW 13.2 Plt Count 373 MPV 8.8 Neut % (Auto) 80.4 H Lymph % (Auto) 9.2 [place] % (Auto) 8.8 H Eos % (Auto) 0.1 Baso % (Auto) 1.5 Neut # (Auto) 11.1 H Lymph # (Auto) 1.3 [place] # (Auto) 1.2 H Eos # (Auto) 0.0 Baso # (Auto) 0.2 WBC Differential . Diff Scan Differential Comment . Platelet Estimate Platelet Morphology ESR Sodium 137 Potassium 3.0 L Chloride 100 Carbon Dioxide 24.8 Anion Gap 12 BUN 12 Creatinine 0.86 Estimated GFR 84 L Random Glucose 92 Lactic Acid 1.3 Calcium 8.8 Total Bilirubin 0.6 AST 6 L ALT 12 Alkaline Phosphatase 91 C-Reactive Protein Total Protein 8.0 Albumin 3.3 L Urine Color Urine Clarity Urine pH Ur Specific [place] Urine Protein Urine Glucose (UA) Urine Ketones Urine Occult Blood Urine Nitrate Urine Bilirubin Urine Urobilinogen Ur Leukocyte Esterase Urine WBC Ur Squamous Epith Cells Urine Bacteria Micro UA Comment Urine Culture Comments Urine Opiates Screen Ur Barbiturates Screen Ur Amphetamines Screen U Benzodiazepines Scrn Urine Cocaine Screen U Cannabinoids Screen 03/20/18 03/20/18 03/20/18 20:10 20:10 21:50 CBC w Diff WBC RBC Hgb Hct MCV MCH MCHC RDW Plt Count MPV Neut % (Auto) Lymph % (Auto) [place] % (Auto) Eos % (Auto) Baso % (Auto) Neut # (Auto) Lymph # (Auto) [place] # (Auto) Eos # (Auto) Baso # (Auto) WBC Differential Diff Scan Differential Comment Platelet Estimate Platelet Morphology ESR 51 H Sodium Potassium Chloride Carbon Dioxide Anion Gap BUN Creatinine Estimated GFR Random Glucose Lactic Acid Calcium Total Bilirubin AST ALT Alkaline Phosphatase C-Reactive Protein 21.20 H Total Protein Albumin Urine Color Urine Clarity Urine pH Ur Specific [place] Urine Protein Urine Glucose (UA) Urine Ketones Urine Occult Blood Urine Nitrate Urine Bilirubin Urine Urobilinogen Ur Leukocyte Esterase Urine WBC Ur Squamous Epith Cells Urine Bacteria Micro UA Comment Urine Culture Comments Urine Opiates Screen Neg Ur Barbiturates Screen Neg Ur Amphetamines Screen Neg U Benzodiazepines Scrn Neg Urine Cocaine Screen Neg U Cannabinoids Screen Pos H 03/20/18 03/21/18 03/21/18 21:50 05:30 05:30 CBC w Diff Slide review pending WBC 15.5 H RBC 3.61 L Hgb 11.1 L Hct 33.7 L MCV 93.4 MCH 30.8 MCHC 33.0 RDW 13.1 Plt Count 322 MPV 9.5 Neut % (Auto) 80.8 H Lymph % (Auto) 5.4 L [place] % (Auto) 13.6 H Eos % (Auto) 0.1 Baso % (Auto) 0.1 Neut # (Auto) 12.6 H Lymph # (Auto) 0.8 L [place] # (Auto) 2.1 H Eos # (Auto) 0.0 Baso # (Auto) 0.0 WBC Differential . Diff Scan Auto diff confirmed Differential Comment . Platelet Estimate Normal Platelet Morphology Normal ESR Sodium 137 Potassium 3.2 L Chloride 104 Carbon Dioxide 18.9 L Anion Gap 14 BUN 7 Creatinine 0.63 Estimated GFR Greater than 89 Random Glucose 91 Lactic Acid Calcium 7.7 L D Total Bilirubin AST ALT Alkaline Phosphatase C-Reactive Protein Total Protein Albumin Urine Color Yellow Urine Clarity Clear Urine pH 6.0 Ur Specific [place] 1.020 Urine Protein Trace Urine Glucose (UA) Negative Urine Ketones 80 or greater Urine Occult Blood Negative Urine Nitrate Negative Urine Bilirubin Negative Urine Urobilinogen 0.2 Ur Leukocyte Esterase Negative Urine WBC 9-20 H Ur Squamous Epith Cells 0-5 Urine Bacteria Moderate H Micro UA Comment Culture indicated Urine Culture Comments Culture indicated Urine Opiates Screen Ur Barbiturates Screen Ur Amphetamines Screen U Benzodiazepines Scrn Urine Cocaine Screen U Cannabinoids Screen 03/21/18 11:35 CBC w Diff WBC RBC Hgb Hct MCV MCH MCHC RDW Plt Count MPV Neut % (Auto) Lymph % (Auto) [place] % (Auto) Eos % (Auto) Baso % (Auto) Neut # (Auto) Lymph # (Auto) [place] # (Auto) Eos # (Auto) Baso # (Auto) WBC Differential Diff Scan Differential Comment Platelet Estimate Platelet Morphology ESR Sodium 138 Potassium 3.3 L Chloride 106 Carbon Dioxide 19.8 L Anion Gap 12 BUN 5 L Creatinine 0.56 Estimated GFR Greater than 89 Random Glucose 98 Lactic Acid Calcium 7.8 L Total Bilirubin 0.5 AST 6 L ALT 8 L Alkaline Phosphatase 70 C-Reactive Protein Total Protein 6.1 L D Albumin 2.4 L D Urine Color Urine Clarity Urine pH Ur Specific [place] Urine Protein Urine Glucose (UA) Urine Ketones Urine Occult Blood Urine Nitrate Urine Bilirubin Urine Urobilinogen Ur Leukocyte Esterase Urine WBC Ur Squamous Epith Cells Urine Bacteria Micro UA Comment Urine Culture Comments Urine Opiates Screen Ur Barbiturates Screen Ur Amphetamines Screen U Benzodiazepines Scrn Urine Cocaine Screen U Cannabinoids Screen - Imaging Impressions Abdomen/Pelvis CT 03/20/18 00:00 CONCLUSION: 1. There is a small amount of free fluid in the pelvis. No free air. No hydronephrosis or renal calculi. Contrast not administered. Chest X-Ray 03/20/18 20:23 CONCLUSION: No acute cardiopulmonary process. Assessment and Plan (1) Leucocytosis Status: Acute Code(s): D72.829 - Elevated white blood cell count, unspecified (2) Fever Status: Acute Code(s): R50.9 - Fever, unspecified (3) UTI (urinary tract infection) Status: Acute Code(s): N39.0 - Urinary tract infection, site not specified - Plan 1. Patient likely with a UTI - ? Pyelonephritis 2. Urine culture with > [id number] Blood cultures pending- Follow both closely 3. Continue the IV Cefepime 4. Stop the IV Vancomycin 5. Add Cipro 400 mg IV q 12hrs (2) Fever Qualifiers: Fever type: due to other condition Qualified Code(s): R50.81 - Fever presenting with conditions classified elsewhere (3) UTI (urinary tract infection) Qualifiers: Urinary tract infection type: site unspecified
[2018-03-21] MEDS: Ciprofloxacin 400 MG/200 ML 400 MG/200 ML PIGGYBACK IV.SIG SCH (17:48)
[2018-03-22] MEDS: Potassium Chloride Inj 10 MEQ in Sod Chloride 0.9% Inj 1,000 ML IV.SIG SCH ×2 (00:01→12:16)
[2018-03-22] MEDS: Acetaminophen 325 MG Tablet PO PRN ×2 (00:07→12:16)
[2018-03-22 01:36] LABS: Chloride 103 meq/L (98-107); Potassium 3.2 meq/L (3.5-5.1); Sodium 135 meq/L (136-145)
[2018-03-22 01:40] LABS: Albumin 2.5 g/dL (3.4-5.0); Anion Gap 13 meq/L (5-15); Blood Urea Nitrogen 5 mg/dL (7-18); Carbon Dioxide 19.4 meq/L (21.0-32.0); Glucose,Random 96 mg/dL (74-106)
[2018-03-22 01:43] LABS: Alanine Aminotransferase 9 U/L (9-42); Aspartate Aminotransferase 8 U/L (16-38); Glomerular Filtration Rate Greater Than 89 mL/min (>89)
[2018-03-22 01:45] LABS: Total Protein 6.5 g/dL (6.4-8.2)
[2018-03-22 01:46] LABS: Alkaline Phosphatase 72 U/L (45-117)
[2018-03-22 05:55] LABS: Baso % (Auto) 0.3 % (0.0-2.0); Eos % (Auto) 0.1 % (0.0-4.0); Hematocrit 34.3 % (35.0-46.0); Lymph # (Auto) 2.4 th/mm3 (1.0-4.8); Lymph % (Auto) 15.1 % (9.0-44.0); Mean Corpuscular HGB Conc 32.2 % (32.0-36.0); Mean Corpuscular Hemoglobin 30.1 pg (27.0-34.0); Mean Corpuscular Volume 93.7 fL (80.0-100.0); Mean Platelet Volume 8.5 fL (7.0-11.0); Mono # (Auto) 2.5 th/mm3 (0.0-0.9); Mono % (Auto) 15.7 % (0.0-8.0); Neut # (Auto) 11.1 th/mm3 (1.8-7.7); Neut % (Auto) 68.8 % (16.0-70.0); Platelet Count 410 th/mm3 (150-450); Red Blood Count 3.66 mil/mm3 (4.00-5.30); Red Cell Distribution Width 13.2 % (11.6-17.2)
[2018-03-22] MEDS: Ciprofloxacin 400 MG/200 ML 400 MG/200 ML PIGGYBACK IV.SIG SCH ×2 (05:56→17:35)
[2018-03-22] MEDS ORDERED: Piperacil/Tazo 3.375 GM Premix 50 ML IV.SIG SCH (06:00)
[2018-03-22 06:03] LABS: Chloride 106 meq/L (98-107); Potassium 3.5 meq/L (3.5-5.1); Sodium 139 meq/L (136-145)
[2018-03-22 06:06] LABS: Anion Gap 12 meq/L (5-15); Blood Urea Nitrogen 6 mg/dL (7-18); Calcium 7.9 mg/dL (8.5-10.1); Carbon Dioxide 21.4 meq/L (21.0-32.0); Glucose,Random 95 mg/dL (74-106)
[2018-03-22 06:08] LABS: Platelet Estimate Normal (Normal); Platelet Morphology Normal (Normal); RBC Morphology Normal (Normal)
[2018-03-22 06:09] LABS: Glomerular Filtration Rate Greater Than 89 mL/min (>89)
[2018-03-22] MEDS: Senna/Docusate Sodium 8.6/50 MG Tablet PO SCH (08:43)
[2018-03-22] MEDS: Piperacil/Tazo 3.375 GM Premix 50 ML IV.SIG SCH ×2 (09:51→15:51)
--- NOTE | 2018-03-22 11:23 | P.PN ---
Subjective Interval history: Patient feeling better this am tolerated some food ,blood c/s negative so far and urine culture shows e coli sensitive to cipro,will see how she does today and probable discharge later today. Physical Exam Vital signs: Vital Signs 03/21/18 12:00 03/21/18 15:43 03/21/18 20:00 Temperature 100.3 F H 102.1 F H Pulse Rate 90 99 H Respiratory Rate 18 18 18 Blood Pressure 106/55 L 108/58 L Pulse Oximetry 100 98 03/21/18 22:44 03/22/18 01:56 03/22/18 08:07 Temperature 99.7 F H 103.5 F H 98.4 F Pulse Rate 82 112 H 72 Respiratory Rate 16 16 Blood Pressure 111/66 108/56 L 117/66 Pulse Oximetry 99 96 99 Intake & Output 03/21/18 03/22/18 03/22/18 18:59 06:59 18:59 Intake Total 1805 / 1805 1605 / 1605 200 / 200 Balance 1805 / 1805 1605 / 1605 200 / 200 Weight 57 kg Intake: IV 1205 / 1205 1405 / 1405 200 / 200 Maxipime Inj 2,000 MG In NS Inj 200 / 200 100 / 100 100 ML @ 200 mls/hr IV.SIG Q8H CALLIE Rx#:[id number] Cipro 400 MG/200 ML Inj 400 mg 200 / 200 200 / 200 In 200 ml @ 200 mls/hr IV.SIG Q12H CALLIE Rx#:[id number] KCl Inj 10 MEQ In NS Inj 1,000 1005 / 1005 1005 / 1005 ML @ 100 mls/hr IV.SIG .Q10H3M CALLIE Rx#:[id number] Oral 600 / 600 200 / 200 Other: # Voids 4 2 # Bowel Movements 1 # Emeses 1 Narrative: GENERAL: SKIN: Warm and dry. HEAD: Normocephalic. EYES: No scleral icterus. No injection or drainage. NECK: Supple, trachea midline. No JVD or lymphadenopathy. CARDIOVASCULAR: Regular rate and rhythm without murmurs, gallops, or rubs. RESPIRATORY: Breath sounds equal bilaterally. No accessory muscle use. GASTROINTESTINAL: Abdomen soft, non-tender, nondistended. MUSCULOSKELETAL: No cyanosis, or edema. BACK: Nontender without obvious deformity. No CVA tenderness. Results - Labs CBC & Chem 7: 03/22/18 05:25 03/22/18 05:25 Laboratory Results - last 24 hr 03/20/18 03/21/18 03/21/18 21:50 11:35 11:35 CBC w Diff WBC RBC Hgb Hct MCV MCH MCHC RDW Plt Count MPV Neut % (Auto) Lymph % (Auto) Mcleod % (Auto) Eos % (Auto) Baso % (Auto) Neut # (Auto) Lymph # (Auto) Mcleod # (Auto) Eos # (Auto) Baso # (Auto) WBC Differential Diff Scan Differential Comment Platelet Estimate Platelet Morphology RBC Morphology Sodium 138 Potassium 3.3 L Chloride 106 Carbon Dioxide 19.8 L Anion Gap 12 BUN 5 L Creatinine 0.56 Estimated GFR Greater than 89 Random Glucose 98 Calcium 7.8 L Total Bilirubin 0.5 AST 6 L ALT 8 L Alkaline Phosphatase 70 Total Protein 6.1 L D Albumin 2.4 L D Beta HCG, Quant Less than 1 Urine Color Yellow Urine Clarity Clear Urine pH 6.0 Ur Specific Council 1.020 Urine Protein Trace Urine Glucose (UA) Negative Urine Ketones 80 or greater Urine Occult Blood Negative Urine Nitrate Negative Urine Bilirubin Negative Urine Urobilinogen 0.2 Ur Leukocyte Esterase Negative Urine WBC 9-20 H Ur Squamous Epith Cells 0-5 Urine Bacteria Moderate H Micro UA Comment Culture indicated Urine Culture Comments Culture indicated 03/22/18 03/22/18 03/22/18 00:00 05:25 05:25 CBC w Diff Slide review pending WBC 16.0 H RBC 3.66 L Hgb 11.0 L Hct 34.3 L MCV 93.7 MCH 30.1 MCHC 32.2 RDW 13.2 Plt Count 410 MPV 8.5 Neut % (Auto) 68.8 Lymph % (Auto) 15.1 Mcleod % (Auto) 15.7 H Eos % (Auto) 0.1 Baso % (Auto) 0.3 Neut # (Auto) 11.1 H Lymph # (Auto) 2.4 Mcleod # (Auto) 2.5 H Eos # (Auto) 0.0 Baso # (Auto) 0.0 WBC Differential . Diff Scan Auto diff confirmed Differential Comment . Platelet Estimate Normal Platelet Morphology Normal RBC Morphology Normal Sodium 135 L 139 Potassium 3.2 L 3.5 Chloride 103 106 Carbon Dioxide 19.4 L 21.4 Anion Gap 13 12 BUN 5 L 6 L Creatinine 0.59 0.53 Estimated GFR Greater than 89 Greater than 89 Random Glucose 96 95 Calcium 8.0 L 7.9 L Total Bilirubin 0.4 AST 8 L ALT 9 Alkaline Phosphatase 72 Total Protein 6.5 Albumin 2.5 L Beta HCG, Quant Urine Color Urine Clarity Urine pH Ur Specific Council Urine Protein Urine Glucose (UA) Urine Ketones Urine Occult Blood Urine Nitrate Urine Bilirubin Urine Urobilinogen Ur Leukocyte Esterase Urine WBC Ur Squamous Epith Cells Urine Bacteria Micro UA Comment Urine Culture Comments Microbiology 03/20/18 20:20 Blood - Peripheral Aerobic Blood Culture - Preliminary No growth in 2 days 03/20/18 20:20 Blood - Peripheral Anaerobic Blood Culture - Preliminary No growth in 2 days 03/20/18 20:10 Blood - Peripheral Aerobic Blood Culture - Preliminary No growth in 2 days 03/20/18 20:10 Blood - Peripheral Anaerobic Blood Culture - Preliminary No growth in 2 days 03/20/18 21:50 Clean Catch Urine Urine Culture - Final Escherichia coli Assessment and Plan - Assessment (1) Fever Code(s): R50.9 - Fever, unspecified Status: Acute Plan: fever resolved ,u/c/s e coli sensitive to cipro ,cultures negative still with elevated wbc count possibel discharge later today. (2) Diffuse pain Code(s): R52 - Pain, unspecified Status: Acute Plan: pain improved CT abd/pelvis unremarkable (3) UTI (urinary tract infection) Code(s): N39.0 - Urinary tract infection, site not specified Status: Acute Plan: on antibiotic as above (4) Pyelonephritis Code(s): N12 - Tubulo-interstitial nephritis, not specified as acute or chronic Status: Acute Plan: symptoms are consistent with pyelonephritis which is resolving (5) Leucocytosis Code(s): D72.829 - Elevated white blood cell count, unspecified Status: Acute Plan: persists ,will need to recheck as outpatient - Plan porbable discharge today (1) Fever Qualifiers: Fever type: due to other condition Qualified Code(s): R50.81 - Fever presenting with conditions classified elsewhere (3) UTI (urinary tract infection) Qualifiers: Urinary tract infection type: site unspecified
--- NOTE | 2018-03-22 18:07 | P.DS ---
Date of admission: 03/20/18 22:44 Primary care physician: No Primary Care Physician Brief History from admission: 18-year-old white female, presents to the emergency room with complaints of fever chills nausea vomiting recurrent back pain which is been ongoing for 5 days. She also complains of diffuse severe myalgias and pain everywhere. Patient also on emergency room arrival was tearful and crying. Patient did state she went to the urgent care center earlier in the week and was told to drink a lot of fluids as they did not any other abnormalities. Patient did have multiple episodes of vomiting today. No urinary symptoms. She is on her menstrual cycle now is denies any IV drug use no other significant complaints patient has used ibuprofen for her fevers and does smoke marijuana. Denies any other IV drug abuse in the emergency room she was found to have a temp greater than 100 white blood cell count greater than 13,000 with shift to the left she also had a positive sed rate and a positive C-reactive protein. On urine evaluation does show some WBCs in the urine consistent with urinary tract infection patient was started on IV antibiotic cefepime 2 g given in emergency room. Also of note patient was slightly hypotensive in the emergency room she will be given IV fluid and follow-up labs in the morning. DS: Diagnosis - Discharge Diagnosis (1) Fever Status: Acute (2) Diffuse pain Status: Acute (3) UTI (urinary tract infection) Status: Acute (4) Pyelonephritis Status: Acute (5) Leucocytosis Status: Acute DS: Summary Hospital Course: Patient admitted through ER with fever,diffuse pain ,uti and probable pyleonephritis was started on Zosyn and does have elevated WBC count ,urine culture e coli sensitive to cipro ,I requested ID to see as well,blood cultures are negative 2days and cipro was added which urine is sensitive too. Patient med [facility] bid for 1 week ,zofran prn for nausea and to have follow up CBC 03/24/18 and to follow up with her PCP ,case has been discussed with PCP. Patient received IV fluid and has tolerated soft diet ,suggest off work until 03/26/18. - Time Spent with Patient Total time spent providing and/or coordinating discharge services: 30monutes - Quality: AMI Clinical Trial Participant: No - Quality: VTE Deep Vein Thrombosis/Pulmonary Embolism Present on Admission: No Exam Vital signs: Vital Signs 03/21/18 20:00 03/21/18 22:44 03/22/18 01:56 Temperature 99.7 F H 103.5 F H Pulse Rate 82 112 H Respiratory Rate 18 16 Blood Pressure 111/66 108/56 L Pulse Oximetry 99 96 03/22/18 08:07 03/22/18 12:05 Temperature 98.4 F 100.2 F H Pulse Rate 72 85 Respiratory Rate 16 15 Blood Pressure 117/66 101/61 Pulse Oximetry 99 100 Intake & Output 03/21/18 03/22/18 03/22/18 18:59 06:59 18:59 Intake Total 1805 / 1805 1605 / 1605 1250 / 1250 Balance 1805 / 1805 1605 / 1605 1250 / 1250 Weight 57 kg Intake: IV 1205 / 1205 1405 / 1405 1250 / 1250 Maxipime Inj 2,000 MG In NS Inj 200 / 200 100 / 100 100 ML @ 200 mls/hr IV.SIG Q8H CALLIE Rx#:[id number] Cipro 400 MG/200 ML Inj 400 mg 200 / 200 200 / 200 In 200 ml @ 200 mls/hr IV.SIG Q12H CALLIE Rx#:[id number] Zosyn 3.375 GM Premix 50 ML @ 50 / 50 100 mls/hr IV.SIG 0300,0900, 1500,2100 CALLIE Rx#:[id number] KCl Inj 10 MEQ In NS Inj 1,000 1005 / 1005 1005 / 1005 1000 / 1000 ML @ 100 mls/hr IV.SIG .Q10H3M CALLIE Rx#:[id number] Oral 600 / 600 200 / 200 Other: # Voids 4 2 # Bowel Movements 1 # Emeses 1 Narrative: GENERAL: SKIN: Warm and dry. HEAD: Normocephalic. EYES: No scleral icterus. No injection or drainage. NECK: Supple, trachea midline. No JVD or lymphadenopathy. CARDIOVASCULAR: Regular rate and rhythm without murmurs, gallops, or rubs. RESPIRATORY: Breath sounds equal bilaterally. No accessory muscle use. GASTROINTESTINAL: Abdomen soft, non-tender, nondistended. MUSCULOSKELETAL: No cyanosis, or edema. BACK: Nontender without obvious deformity. No CVA tenderness. Results Procedures completed during hospitalization: CT abdomen /pelvis Labs on day of discharge: Labs from last 24 hours 03/22/18 03/22/18 03/22/18 05:25 05:25 00:00 CBC w Diff Slide review pending WBC 16.0 H RBC 3.66 L Hgb 11.0 L Hct 34.3 L MCV 93.7 MCH 30.1 MCHC 32.2 RDW 13.2 Plt Count 410 MPV 8.5 Neut % (Auto) 68.8 Lymph % (Auto) 15.1 Mcduffie % (Auto) 15.7 H Eos % (Auto) 0.1 Baso % (Auto) 0.3 Neut # (Auto) 11.1 H Lymph # (Auto) 2.4 Mcduffie # (Auto) 2.5 H Eos # (Auto) 0.0 Baso # (Auto) 0.0 WBC Differential . Diff Scan Auto diff confirmed Differential Comment . Platelet Estimate Normal Platelet Morphology Normal RBC Morphology Normal Sodium 139 135 L Potassium 3.5 3.2 L Chloride 106 103 Carbon Dioxide 21.4 19.4 L Anion Gap 12 13 BUN 6 L 5 L Creatinine 0.53 0.59 Estimated GFR Greater than 89 Greater than 89 Random Glucose 95 96 Calcium 7.9 L 8.0 L Total Bilirubin 0.4 AST 8 L ALT 9 Alkaline Phosphatase 72 Total Protein 6.5 Albumin 2.5 L Beta HCG, Quant 03/21/18 11:35 CBC w Diff WBC RBC Hgb Hct MCV MCH MCHC RDW Plt Count MPV Neut % (Auto) Lymph % (Auto) Mcduffie % (Auto) Eos % (Auto) Baso % (Auto) Neut # (Auto) Lymph # (Auto) Mcduffie # (Auto) Eos # (Auto) Baso # (Auto) WBC Differential Diff Scan Differential Comment Platelet Estimate Platelet Morphology RBC Morphology Sodium Potassium Chloride Carbon Dioxide Anion Gap BUN Creatinine Estimated GFR Random Glucose Calcium Total Bilirubin AST ALT Alkaline Phosphatase Total Protein Albumin Beta HCG, Quant Less than 1 Preliminary micro results at discharge 03/20/18 20:20 Aerobic Blood Culture - Preliminary Blood - Peripheral No growth in 2 days Anaerobic Blood Culture - Preliminary No growth in 2 days 03/20/18 20:10 Aerobic Blood Culture - Preliminary Blood - Peripheral No growth in 2 days Anaerobic Blood Culture - Preliminary No growth in 2 days - Impressions ITS Impressions Abdomen/Pelvis CT 03/20/18 00:00 CONCLUSION: 1. There is a small amount of free fluid in the pelvis. No free air. No hydronephrosis or renal calculi. Contrast not administered. Chest X-Ray 03/20/18 20:23 CONCLUSION: No acute cardiopulmonary process. - Additional Comments cipro 500 bid to take for 1 week follow up cbc 03/24/18 Discharge Plan - Discharge Disposition Patient Disposition: 01 Discharge Home - Discharge Condition Condition: Stable - Discharge Order Discharge Orders: Discharge Order (Routine); Ordered 03/22/18 Ordered By: Iron Daley - Discharge Details Anticipated Discharge Date: 03/22/18 Discharge Comment: discharge home - Physicians Team Primary Care Provider: Primary Care Angela Cortés Attending Provider: Iron Daley Other Providers: Macy Tafoya MD
== END 2018-03-22 20:01 | disposition home or self-care (01) ==
LOC: PHED 19:26 → PH3 19:26 → PHEDA 22:44 → INTOOBSV 22:44 → PH3 23:50
PROVIDERS: ADMIT Internal Medicine; ATTEND Internal Medicine